=== PATIENT | male | born 1950 | race Caucasian/White ===

== ENCOUNTER 2021-06-20 11:02 | Emergency (ER) | payer MEDICARE ==
[~2021-06-20] VITALS: Ht 167.6 cm; Wt 95.0 kg
[2021-06-20] VITALS (21 sets, daily range): BP systolic 114–164; BP diastolic 71–89
[2021-06-20] MEDS ORDERED: TRAMADOL HYDROC50 M1 PO (13:14)
== END 2021-06-20 13:25 | disposition home or self-care (01) ==
LOC: ED 11:02
DX: S46.912A Strain of unspecified muscle, fascia and tendon at shoulder and upper arm level, left arm, initial encounter (principal); E11.9 Type 2 diabetes mellitus without complications; W01.0XXA Fall on same level from slipping, tripping and stumbling without subsequent striking against object, initial encounter